=== PATIENT | male | born 1960 | race Caucasian/White ===

== ENCOUNTER 2019-08-06 13:44 | Emergency (ER) | payer BC ==
[~2019-08-06] VITALS: Ht 177.8 cm; Wt 86.2 kg
--- NOTE | 2019-08-06 13:55 | NUR ---
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 PATIENT A/OX4, BREATHING EVEN AND UNLABORED, NO SOB NOTED, NEEDS ATTENDED, KEPT COMFORTABLE. ATTACHED TO THE YARN EXAMINER.
[2019-08-06] MEDS ORDERED: IV NS 0.9% 1,000 ML BAG IV ONE (14:30)
[2019-08-06 14:37] LABS: BASOPHILS # (AUTO) 0.1 /CMM (0.0-0.2); BASOPHILS % (AUTO) 0.6 % (0.0-2.0); EOSINOPHILS % (AUTO) 2.4 % (0.0-6.0); HEMATOCRIT 34 % (39-51); HEMOGLOBIN 11.5 g/dL (13.5-17.5); LYMPHOCYTES # (AUTO) 2.5 /CMM (0.8-4.8); LYMPHOCYTES % (AUTO) 24.8 % (20.0-44.0); MEAN CORPUSCULAR HGB CONC 34 g/dl (31.0-36.0); MEAN CORPUSCULAR VOLUME 92 fL (80-96); MONOCYTES % (AUTO) 10.3 % (2.0-12.0); NEUTROPHILS # (AUTO) 6.3 /CMM (1.8-8.9); NEUTROPHILS % (AUTO) 61.9 % (43.0-81.0); PLATELET COUNT (AUTO) 351 /CMM (150-450); RED BLOOD CELL COUNT(AUTO) 3.72 MIL/uL (4.5-6.0); WHITE BLOOD COUNT (AUTO) 10.2 K/uL (4.3-11.0)
[2019-08-06 14:43] LABS: CALCIUM, SERUM 8.9 mg/dL (8.5-10.1); CARBON DIOXIDE 27 mmol/L (21-32); CHLORIDE 96 mmol/L (98-107); CREATININE 1.6 mg/dL (0.6-1.3); GLUCOSE 147 mg/dL (74-106); POTASSIUM 3.2 mmol/L (3.5-5.1); SODIUM SERUM 135 mmol/L (136-145); UREA NITROGEN, BLOOD 21 mg/dL (7-18)
[2019-08-06 14:50] LABS: ALANINE AMINOTRANSFERASE 22 U/L (12-78); ALBUMIN 3.3 g/dL (3.4-5.0); ALKALINE PHOSPHATASE 83 U/L (46-116); ASPARTATE AMINOTRANSFERASE 25 U/L (15-37); BILIRUBIN,DIRECT 0.1 mg/dL (0.0-0.2); BILIRUBIN,TOTAL 0.4 mg/dL (0.2-1.0)
[2019-08-06] MEDS ORDERED: IV NS 0.9% 1,000 ML IV ONE (15:30)
--- NOTE | 2019-08-06 15:30 | NUR ---
ORTHOSTATIC VITALS DONE.
--- NOTE | 2019-08-06 17:10 | NUR ---
PATIENT RESTING, DIZZINESS HAS IMPROVED, DR. DE LA VEGA AT BEDSIDE DISCUSSING PLAN OF CARE.
--- NOTE | 2019-08-06 17:11 | NUR ---
Patient a/ox4, breathing even and unlabored, no sob noted, needs attended. IV removed. Catheter intact and site benign. Pressure and 4x4 applied to site. No bleeding noted.Patient discharged to home in stable condition. Written and verbal after care instructions given. Patient verbalizes understanding of instruction. Waiting for the to pick him up.
[2019-08-06 18:16] VITALS: BP 121/77
--- NOTE | 2019-08-06 18:16 | NUR ---
Patient discharged to home in stable condition.
== END 2019-08-06 18:16 | disposition home or self-care (01) ==
LOC: ER 13:50
DX: R55 Syncope and collapse (principal); I95.89 Other hypotension; R42 Dizziness and giddiness
CPT/HCPCS: 36415; 71045; 80048; 80076; 82962; 84484; 85025; 93005 ×2; 96360; 96361; 99285; J7030 ×2